=== PATIENT | male | born 2000 | race African-American/Black ===

== ENCOUNTER 2022-08-27 04:25 | Emergency (ER) | payer BC ==
[2022-08-27 04:47] LABS: #Eosinphils 0.1 10x3/uL (0.0-0.5); #Monocytes 1.2 10x3/uL (0.0-1.1); %Basophils 0.2 % (0.0-2.0); %Eosinophils 0.5 % (0.0-6.0); %Lymphocytes 16.2 % (18.0-47.0); %Monocytes 9.6 % (0.0-10.0); %Neutrophils 73.3 % (40.0-75.0); Hemoglobin 17.4 g/dL (13.5-17.5); Mean Corpuscular HGB CONC 34.5 g/dL (32.0-36.0); Mean Corpuscular Hemoglobin 29.8 pg (27.0-33.0); Mean Corpuscular Volume 86.5 fl (81.2-95.1); Mean Platelet Volume 10.7 fl (7.4-10.4); Platelet Count 261 10x3/uL (150-450); RBC Distribution Width 12.6 % (11.5-14.5); Red Blood Cell (RBC) Count 5.84 10x6/uL (4.32-5.72); White Blood Cell (WBC) Count 12.4 10x3/uL (3.5-10.5)
[2022-08-27] MEDS ORDERED: Ketorolac Tromethamine 30 MG/ML VIAL ONE (04:48)
[2022-08-27] MEDS ORDERED: Metoclopramide HCl 10 MG/2 ML VIAL ONE (04:48)
[2022-08-27 05:02] LABS: ALT (SGPT) 16 U/L (8-55); AST (SGOT) 20 U/L (5-34); Albumin 4.7 g/dL (3.5-5.0); Alkaline Phosphatase 65 U/L (40-110); Anion Gap 17 mmol/L (10-20); BUN (Urea Nitrogen) 12 mg/dL (8.9-20.6); Bilirubin, Total 1.6 mg/dL (0.2-1.2); Calc. Creatinine Clearance 0 mL/min (70-130); Carbon Dioxide 27 mmol/L (22-29); Chloride 102 mmol/L (98-107); Estimated GFR 72; Globulin 3.5 g/dL (2.4-3.5); Glucose 97 mg/dL (70-105); Potassium 3.9 mmol/L (3.5-5.1); Protein, Total 8.2 g/dL (6.0-8.3); Sodium 142 mmol/L (136-145)
[2022-08-27 05:09] LABS: Bilirubin Neg (Negative); Blood, Urine Negative (Negative); Clarity Clear (Clear); Glucose, Urine (Dipstick) Normal (Negative); Ketone, Urine Negative (Negative); Leukocyte 25 (Negative); Nitrite Negative (Negative); Protein, Urine (Dipstick) Negative (Neg-Trace); Specific Gravity, Urine 1.015 (1.005-1.030)
[2022-08-27 05:14] LABS: Bacteria/HPF Rare-Few HPF (None Seen); RBC/HPF None Seen HPF (0-3); Squamous Epithelial 0-3 HPF (0-3); WBC/HPF 0-3 HPF (0-3)
== END 2022-08-27 06:13 | disposition home or self-care (01) ==
LOC: CSHERS 04:25
DX: R51.9 Headache, unspecified (principal); R53.1 Weakness
CPT/HCPCS: 80053; 81003; 81015; 85025; 96361; 96374; 96375; J1885; J2765

== ENCOUNTER 2022-08-28 06:55 | Emergency (ER) | payer BC ==
[2022-08-28] MEDS ORDERED: cefTRIAXone\\ROCEPHIN 500 MG VIAL ONE (07:23)
[2022-08-28] MEDS ORDERED: metroNIDAZOLE 500 MG TAB ONE (07:23)
[2022-08-28] MEDS ORDERED: Lidocaine 1% (PF) 30 ML VIAL ONE (07:24)
[2022-08-28] MEDS ORDERED: Doxycycline 100 MG CAP PO SCH (07:45)
[2022-08-28 23:51] LABS: Chlam.trachomatis by PCR,Urine Not Detected (NotDetected); GC N.gonorrhoeae PCR,UrineVOID Not Detected (NotDetected)
== END 2022-08-28 07:49 | disposition home or self-care (01) ==
LOC: CSHERS 06:55
DX: Z20.2 Contact with and (suspected) exposure to infections with a predominantly sexual mode of transmission (principal)
CPT/HCPCS: 87491; 87591; 96372; 99283; J0696; J2001

== ENCOUNTER 2022-09-05 16:02 | Emergency (ER) | payer BC ==
[2022-09-05] MEDS ORDERED: Acetaminophen 500 MG TAB ONE (16:47)
[2022-09-05 17:38] LABS: SARS-CoV-2 NAA Rapid Test Not Detected (NotDetected)
== END 2022-09-05 18:04 | disposition home or self-care (01) ==
LOC: CSHERS 16:02
DX: J06.9 Acute upper respiratory infection, unspecified (principal); Z20.822 Contact with and (suspected) exposure to COVID-19
CPT/HCPCS: 87081; 87430; 99283